=== PATIENT | female | born 1960 | race Caucasian/White ===

== ENCOUNTER 2017-01-04 12:45 | Emergency (ER) | payer OTHER ==
--- NOTE | 2017-01-04 15:01 | DIAGNOSTIC IMAGING REPORT ---
PROCEDURE: CT HEAD WITHOUT CONTRAST INDICATION: TRAUMA/INJURY TECHNIQUE: Axial CT images were acquired through the head. Coronal and sagittal reformations were created. COMPARISON: None. 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 Ventricles are normal in size, shape and position. There is no mass, mass effect or midline shift. The koehler-white matter differentiation is normal. There is no edema. The calvarium is intact. The paranasal sinuses and mastoid air cells are normally aerated. The extracranial soft tissues and orbits are normal. IMPRESSION: 1. No CT evidence of acute intracranial process. 2. Findings discussed with emergency department at 03:[address] scans at this facility use dose modulation, iterative reconstruction, and/or weight-based dosing when appropriate to reduce radiation dose to as low as reasonably achievable.
--- NOTE | 2017-01-04 15:11 | DIAGNOSTIC IMAGING REPORT ---
PROCEDURE: CT SINUS/FACIAL BONES W/O CONT CLINICAL INDICATION: TRAUMA/INJURY TECHNIQUE: Noncontrast axial CT images through the sinuses. Coronal and sagittal reformations were created. COMPARISON: None. FINDINGS: The frontal sinuses are normally aerated. The outflow tracts are patent. Sphenoid sinuses and their outflow tracts are patent. No mucosal thickening throughout the ethmoid air cells. The maxillary sinuses are normally aerated with no mucosal thickening. The outflow tracts are patent. The patient is status post bilateral orbital zygomatic craniotomies. No facial bone fractures. Temporomandibular joints are normally aligned. Bony orbits are intact. Orbital soft tissues appear normal. Facial soft tissues and visible glandular structures are symmetric. IMPRESSION: 1. No fractures. 2. Results were called to Mindy Min at 03:[address] scans at this facility use dose modulation, iterative reconstruction, and/or weight-based dosing when appropriate to reduce radiation dose to as low as reasonably achievable.
--- NOTE | 2017-01-04 15:52 | DIAGNOSTIC IMAGING REPORT ---
PROCEDURE: CT ABD/PELVIS WITH CONTRAST INDICATION: TRAUMA/INJURY TECHNIQUE: 125 ml of Isovue 300 were injected intravenously and axial images were obtained of the entire abdomen and pelvis with sagittal and coronal reformations. COMPARISON: Abdominal CT 08/10/2013 FINDINGS: ABDOMEN: Lung bases are clear. Heart size is normal. Liver, gallbladder, pancreas, spleen, adrenal glands and kidneys are normal. Normal abdominal aorta. PELVIS: No diverticulosis or inflammatory process. The appendix not visualized but no evidence of acute appendicitis. Bilateral parametrial surgical clips suggestive of tubal ligation. Uterus and bladder are normal. No free fluid or free air. L5-S1 disc space narrowing. No suspicious osseous lesion. IMPRESSION: 1. Tubal ligation. 2. Otherwise normal CT abdomen pelvis 3. Results discussed with Mindy Min
--- NOTE | 2017-01-04 16:07 | ED CLINICAL REPORT ---
Clinical Report - Physicians/Mid Levels [facility] [address] [place] [address] 01/04/2017 12:47 [facility]: [id number] Time Seen: 13:48; initial patient contact, initial documentation, patient care assumed. Arrived- By private vehicle. Historian- patient. HISTORY OF PRESENT ILLNESS Chief Complaint: FALL. Location of injuries- head, face, abdomen, back and right forearm. The injury occurred about 3 days ago. Fell while walking and landed on the ground; slipped. Occurred at home. The patient complains of moderate pain. The patient sustained a blow to the head. No neck pain or seizure. Not dazed. REVIEW OF SYSTEMS No numbness, loss of vision, chest pain, difficulty breathing or weakness. No laceration or vomiting. She has had abdominal pain but no pain on weight bearing. All systems otherwise negative, except as recorded above. PAST HISTORY See nurses notes. PROBLEMS: Arthritis. 3 brain aneurysms. --13:07 Tucker Fraga R.N. SOCIAL HISTORY Light tobacco smoker. No alcohol use or drug use. No recent travel. Is a local resident. FAMILY HISTORY No significant family medical history. ADDITIONAL NOTES The nursing notes have been reviewed with agreement regarding the chief complaint, HPI, ROS, PMH and patient medications and allergies. PHYSICAL EXAM Vital Signs: 01/04/2017 13:16 BP: 156/86. HR: 64. RR: 16. O2 saturation: 96%. Temp: 97.7 F. Pain level now: 4/10. Have been reviewed as normal and appear to be correct. Appearance: Alert. Oriented X3. No acute distress. Head: Head tender. Swelling of head present. Eyes: Pupils equal, round and reactive to light. EOM intact. Left periorbital area: moderate tenderness, mild swelling and medium sized ecchymosis of the medial aspect and infraorbital area of the periorbital area. No erythema, puncture wound or foreign body. No laceration or deformity. No entrapment of extraocular muscles or gaze palsy. ENT: No dental injury. Pharynx normal. Neck: Painless ROM. Non-tender. Non-tender. CVS: Heart sounds normal. Pulses normal. Respiratory: Breath sounds normal. Chest nontender. Abdomen: Injury is visible. Soft. Mild tenderness in the right upper quadrant and epigastric area. No guarding, rebound tenderness or Beauchamp's, obturator or psoas sign present. Bowel sounds normal. No organomegaly. No mass. Abdomen: mild tenderness and small ecchymosis located in the mid-upper abdomen. No erythema, puncture wound or foreign body. No swelling. No laceration. No abrasion. No injury to the right flank or left flank. No guarding present. No rebound present. Tenderness present. Back: No tenderness. ROM normal. Skin: Skin intact. Skin warm and dry. Normal skin color. Normal skin turgor. Extremities: Normal inspection. Pelvis stable. Extremities atraumatic. No lower extremity edema. Neuro: Oriented X 3. No motor deficit. No sensory deficit. LABS, X-RAYS, AND EKG CT Head: No acute disease. (IMPRESSION: 1. No CT evidence of acute intracranial process. 2. Findings discussed with emergency department at 03:[address] scans at this facility use dose modulation, iterative reconstruction, and/or weight-based dosing when appropriate to reduce radiation dose to as low as reasonably achievable. Electronically Final signed by:Juancarlos Lowery MD 01/04/2017 3:01:27 PM Technologist: JULIA). The study was interpreted by the radiologist and discussed with the radiologist. Interpretation time: 1505. CT Abdomen: No acute disease. IMPRESSION: 1. Tubal ligation. 2. Otherwise normal CT abdomen pelvis 3. Results discussed with Mindy Min Electronically Final signed by:Juancarlos Lowery MD 01/04/2017 3:52:21 PM. The study was interpreted by the radiologist and discussed with the radiologist. Interpretation time: 1545. Note - Tests: (CT Face IMPRESSION: 1. No fractures. 2. Results were called to Mindy Min at 03:[address] scans at this facility use dose modulation, iterative reconstruction, and/or weight-based dosing when appropriate to reduce radiation dose to as low as reasonably achievable. Electronically Final signed by:Juancarlos Lowery MD 01/04/2017 3:11:24 PM). PROGRESS AND PROCEDURES Course of Care: 01/04/2017 15:52 BP: 135/74. HR: 58. RR: 14. O2 saturation: 98%. Temp: 97.8 F. Pain level now: 01/08. Vital Signs: have been reviewed as normal and appear to be correct. Patient and friend counseled in person regarding the patient's stable condition, test results and diagnosis. 1600. Differential Diagnosis: Other possible considerations: fall, fx, internal injury, contusions,, sprains, lacs, abrasions. Above considerations are based on history, physical exam, laboratory data and other information. Differential diagnosis was discussed with patient. Disposition: Discharged home in good and improved condition (16:07). Condition: good and stable. CLINICAL IMPRESSION Multiple contusions to the left periorbital area and right upper quadrant of the abdomen.No hematoma or skin abrasion. Fall on same level by slipping. INSTRUCTIONS Do not work today, for two days. Warnings: GENERAL WARNINGS: Return or contact your physician immediately if your condition worsens or changes unexpectedly, if not improving as expected, or if other problems arise. SPECIFICALLY, return if you develop incontinence of urine (loss of bladder control). chest pain, trouble breathing, increased abdominal pain. Prescription Medications: Ultram 50 mg tablets: take 1-2 orally every 6 hours as needed for pain. Dispense twenty (20). No refills. Substitution is permissible. Follow-up: Follow up with your doctor in about five days as needed. Call for an appointment. Summary of care provided to patient. Understanding of the discharge instructions verbalized by patient. (Electronically signed by Mindy Min A.R.N.P. 01/04/2017 16:50)
--- NOTE | 2017-01-04 16:07 | ED NURSING NOTES ---
Clinical Report - Nurses [facility] [address] [place] [address] 01/04/2017 12:47 Patient: ANDER JIMENEZ TRIAGE Triage time 13:00 Jan 04 2017. Acuity: LEVEL 3. Chief Complaint: FALL while walking, onto the ground and landed on their back; lost balance. SEPSIS SCREEN: Sepsis Screen. Negative (no infection suspected/documented). --13:08 Tucker Fraga R.N. 13:16 01/04/17. BP: 156/86. HR: 64. RR: 16. O2 saturation: 96% on room air. Temp: 97.7 F. Pain level now: 02/08. --13:16 Tucker Fraga R.N. Weight: 72.5 kg estimated. Height/Length: 64 inches Estimated. BMI: 27.5. --13:03 Tucker Fraga R.N. Medications Naprosyn Oral. --13:06 Tucker Fraga R.N. Tylenol. --13:06 Tucker Fraga R.N. Allergies No Known Drug Allergy. --13:06 Tucker Fraga R.N. History Arrived by private vehicle. Historian: patient. Accompanied by family. Location of injuries: left periorbital area. This occurred (Wednesday). She has had extremity pain. Treatment SITE ACQUISITION MANAGER: Ice. Trauma activation: Pre-hospital notification of patient arrival was received. PAST MEDICAL HX: No history of diabetes mellitus, heart disease, stroke or hypertension. Tetanus status: up-to-date. Immunizations: up-to-date. Denies current . SURGERY HX: ( 3 aneurysms clipped.). SOCIAL HX: Light tobacco smoker (Last cigarette 2 weeks ago). No alcohol use or drug use. No infectious disease exposure. FALL RISK ASSESSMENT: Fall risk assessment completed. No fall risk identified. NUTRITIONAL RISK ASSESSMENT: The nutritional risk assessment revealed no deficiencies. FUNCTIONAL ASSESSMENT: Functional assessment: no impairments noted. LEARNING NEEDS ASSESSMENT: The learning needs assessment revealed no barriers. ABUSE ASSESSMENT: Abuse assessment: The patient was asked "Do you feel safe in your home?". SKIN INTEGRITY ASSESSMENT: Skin integrity risk assessment completed. No skin integrity risk identified. --13:08 Tucker Fraga R.N. PROBLEMS: Arthritis. 3 brain aneurysms. --13:07 Tucker Fraga R.N. Interventions ID band on patient. To treatment room. --13:08 Tucker Fraga R.N. PHYSICAL ASSESSMENT Ambulatory to room. GENERAL / NEURO / PSYCH: Alert. Oriented X 4. Appears in pain. She has had weakness. HEENT: Head: ecchymosis present (L periorbital injury). RESPIRATORY: Respirations not labored. CVS: Capillary refill less than 2 seconds. GI / : Abdomen soft. ( Large spot of ecchymosis noted to mid abdomen). SKIN: Skin is warm and dry. Ecchymosis located on the right arm. --13:09 Tucker Fraga R.N. NURSING PROGRESS NOTES Patient gowned. Reassurance given. Two patient identifiers checked. Call light placed in reach. Side rails up x 2. Bed placed in lowest position. Patient ready for evaluation- chart flagged and MARKETING INFORMATION MANAGER notified. --13:09 Tucker Fraga R.N. 13:56 01/04/17. BP: 115/67. HR: 71. RR: 16. O2 saturation: 97% on room air. Pain level now: 02/08. --13:58 Tucker Farga R.N. ( Pt is reporting that her vision is fuzzy, she feels "all out of sorts" and is concerned because of her HX of aneurysms. MARKETING INFORMATION MANAGER in to see Pt, head CT ordered.). --13:58 Tucker Fraga R.N. 14:11 01/04/2017 Site #1 started via IV in the left wrist with an 20g angiocath, with aseptic technique and good blood return; one attempt. Blood drawn: rainbow set and pediatric tubes. Labeled in the presence of the patient and sent to the lab. Saline lock flushed with 10 mL saline. --14:11 Tucker Fraga R.N. 14:12 01/04/2017 Toradol IVP 30 mg given. via site #1. Allergies verified and confirmed 5 rights. IV patency established. IV site checked: no pain, redness, or swelling. IV flushed thoroughly pre- and post-medication administration. IVP given by RN. --14:12 Tucker Fraga R.N. Patient transported to [place] by wheelchair with tech. --14:24 Tucker Fraga R.N. Patient returned from [place] by wheelchair with tech. (14:41 Jan 04 2017). --14:43 Tucker Fraga R.N. 16:02 01/04/2017 Toradol IVP Response: no adverse reaction pain is improving. Symptoms are the same. --16:02 Tucker Fraga R.N. 16:27 01/04/2017 Site #1 removed upon discharge. Bandage applied. --16:27 Tucker Fraga R.N. DISPOSITION / DISCHARGE 15:52 01/04/17. BP: 135/74. HR: 58. RR: 14. O2 saturation: 98% on room air. Temp: 97.8 F. Pain level now: 01/08. --15:52 Tucker Fraga R.N. ( MARKETING INFORMATION MANAGER in to discuss results of CT/ABD Imaging studies. Pt stable, ready for DC, sister at bedside. Questions were answered, water brought to Pt per request.). --15:55 Tucker Fraga R.N. Condition at departure: improved and stable. The goals identified in the patient's plan of care were met. No learning barriers present. Discharge instructions provided and reviewed with the patient and family. Reviewed medication(s) side effects, precautions, dosing and course information. Prescription(s) given to the patient. Reviewed referral to a primary care physician. Work note given. Family verbalized understanding. Written instructions provided in Martiniquais. The patient was discharged by the nurse practitioner. She was discharged home and accompanied by family. She left the Emergency Department ambulatory and via private vehicle. Family member driving. ( Pt DC'd in stable condition, VSS, afebrile, pain controlled and improving, verbalized understanding of DC instructions, sister at bedside is ride home. DC paperwork in hand when Pt walked out.). --16:27 Tucker Fraga R.N. Departure time: 16:27 Jan 04 2017. --16:27 Tucker Fraga R.N. Locked/Released at 01/04/2017 16:29 by Tucker Fraga R.N.
--- NOTE | 2017-01-04 16:07 | ED ORDER SUMMARY ---
..... Patient: ANDER JIMENEZ OrderSheet [facility] VisitID: [id number] [place] [address] 56y, F Registration Date/Time: 01/04/2017 ORDER SHEET Weight: 72.5 kg (estimated) Allergies: No Known Drug Allergy GENERAL ORDERS: CT Sinus/Facial Bones wo Cont Urgent (13:55 01/04/2017 HBivens A.R.N.P.) (Ack 13:57 KHoerner) (14:21 KHoerner) CT Head wo Cont Urgent (13:55 01/04/2017 HBivens A.R.N.P.) (Ack 13:57 KHoerner) (14:21 KHoerner) CT Abd/Pel w Cont (No) (pending) Urgent (13:55 01/04/2017 HBivens A.R.N.P.) (Ack 13:57 KHoerner) (14:21 KHoerner) CBC w Diff Urgent (13:55 01/04/2017 HBivens A.R.N.P.) (Ack 13:57 KHoerner) (14:17 MCook R.N.) CMP Urgent (13:55 01/04/2017 HBivens A.R.N.P.) (Ack 13:57 KHoerner) (14:17 MCook R.N.) MEDICATION ORDERS: IV FLUIDS: Toradol IV 30 mg (NOW) (13:54 01/04/2017 HBivens A.R.N.P.) (14:12 MCook R.N.) IV Saline Lock (13:55 01/04/2017 HBivens A.R.N.P.) (14:11 MCook R.N.) ORDER SHEET NOTES: [Electronically signed by Tucker Fraga R.N. (16:29 01/04/2017)] [Electronically signed by Mindy MinR.N.P. (16:50 01/04/2017)] [Electronically locked/signed by Tucker Fraga R.N. (16:29 01/04/2017)]
--- NOTE | 2017-01-04 16:07 | ED ORDER SUMMARY ---
..... Patient: ANDER JIMENEZ OrderSheet [facility] VisitID: [id number] [place] [address] 56y, F Registration Date/Time: 01/04/2017 ORDER SHEET Weight: 72.5 kg (estimated) Allergies: No Known Drug Allergy GENERAL ORDERS: CT Sinus/Facial Bones wo Cont Urgent (13:55 01/04/2017 HBivens A.R.N.P.) (Ack 13:57 KHoerner) (14:21 KHoerner) CT Head wo Cont Urgent (13:55 01/04/2017 HBivens A.R.N.P.) (Ack 13:57 KHoerner) (14:21 KHoerner) CT Abd/Pel w Cont (No) (pending) Urgent (13:55 01/04/2017 HBivens A.R.N.P.) (Ack 13:57 KHoerner) (14:21 KHoerner) CBC w Diff Urgent (13:55 01/04/2017 HBivens A.R.N.P.) (Ack 13:57 KHoerner) (14:17 MCook R.N.) CMP Urgent (13:55 01/04/2017 HBivens A.R.N.P.) (Ack 13:57 KHoerner) (14:17 MCook R.N.) MEDICATION ORDERS: IV FLUIDS: Toradol IV 30 mg (NOW) (13:54 01/04/2017 HBivens A.R.N.P.) (14:12 MCook R.N.) IV Saline Lock (13:55 01/04/2017 HBivens A.R.N.P.) (14:11 MCook R.N.) ORDER SHEET NOTES: [Electronically signed by Tucker Fraga R.N. (16:29 01/04/2017)] [Electronically signed by Mindy MinR.N.P. (16:50 01/04/2017)] [Electronically locked/signed by Tucker Fraga R.N. (16:29 01/04/2017)]
--- NOTE | 2017-01-04 16:07 | ED NURSING NOTES ---
Clinical Report - Nurses [facility] [address] [place] [address] 01/04/2017 12:47 Patient: ANDER JIMENEZ TRIAGE Triage time 13:00 Jan 04 2017. Acuity: LEVEL 3. Chief Complaint: FALL while walking, onto the ground and landed on their back; lost balance. SEPSIS SCREEN: Sepsis Screen. Negative (no infection suspected/documented). --13:08 Tucker Fraga R.N. 13:16 01/04/17. BP: 156/86. HR: 64. RR: 16. O2 saturation: 96% on room air. Temp: 97.7 F. Pain level now: 02/08. --13:16 Tucker Fraga R.N. Weight: 72.5 kg estimated. Height/Length: 64 inches Estimated. BMI: 27.5. --13:03 Tucker Fraga R.N. Medications Naprosyn Oral. --13:06 Tucker Fraga R.N. Tylenol. --13:06 Tucker Fraga R.N. Allergies No Known Drug Allergy. --13:06 Tucker Fraga R.N. History Arrived by private vehicle. Historian: patient. Accompanied by family. Location of injuries: left periorbital area. This occurred (Wednesday). She has had extremity pain. Treatment DIRECTOR FUNERAL: Ice. Trauma activation: Pre-hospital notification of patient arrival was received. PAST MEDICAL HX: No history of diabetes mellitus, heart disease, stroke or hypertension. Tetanus status: up-to-date. Immunizations: up-to-date. Denies current . SURGERY HX: ( 3 aneurysms clipped.). SOCIAL HX: Light tobacco smoker (Last cigarette 2 weeks ago). No alcohol use or drug use. No infectious disease exposure. FALL RISK ASSESSMENT: Fall risk assessment completed. No fall risk identified. NUTRITIONAL RISK ASSESSMENT: The nutritional risk assessment revealed no deficiencies. FUNCTIONAL ASSESSMENT: Functional assessment: no impairments noted. LEARNING NEEDS ASSESSMENT: The learning needs assessment revealed no barriers. ABUSE ASSESSMENT: Abuse assessment: The patient was asked "Do you feel safe in your home?". SKIN INTEGRITY ASSESSMENT: Skin integrity risk assessment completed. No skin integrity risk identified. --13:08 Tucker Fraga R.N. PROBLEMS: Arthritis. 3 brain aneurysms. --13:07 Tucker Fraga R.N. Interventions ID band on patient. To treatment room. --13:08 Tucker Fraga R.N. PHYSICAL ASSESSMENT Ambulatory to room. GENERAL / NEURO / PSYCH: Alert. Oriented X 4. Appears in pain. She has had weakness. HEENT: Head: ecchymosis present (L periorbital injury). RESPIRATORY: Respirations not labored. CVS: Capillary refill less than 2 seconds. GI / : Abdomen soft. ( Large spot of ecchymosis noted to mid abdomen). SKIN: Skin is warm and dry. Ecchymosis located on the right arm. --13:09 Tucker Fraga R.N. NURSING PROGRESS NOTES Patient gowned. Reassurance given. Two patient identifiers checked. Call light placed in reach. Side rails up x 2. Bed placed in lowest position. Patient ready for evaluation- chart flagged and AIR TURNING MACHINE FEEDER notified. --13:09 Tucker Fraga R.N. 13:56 01/04/17. BP: 115/67. HR: 71. RR: 16. O2 saturation: 97% on room air. Pain level now: 02/08. --13:58 Tucker Fraga R.N. ( Pt is reporting that her vision is fuzzy, she feels "all out of sorts" and is concerned because of her HX of aneurysms. AIR TURNING MACHINE FEEDER in to see Pt, head CT ordered.). --13:58 Tucker Fraga R.N. 14:11 01/04/2017 Site #1 started via IV in the left wrist with an 20g angiocath, with aseptic technique and good blood return; one attempt. Blood drawn: rainbow set and pediatric tubes. Labeled in the presence of the patient and sent to the lab. Saline lock flushed with 10 mL saline. --14:11 Tucker Fraga R.N. 14:12 01/04/2017 Toradol IVP 30 mg given. via site #1. Allergies verified and confirmed 5 rights. IV patency established. IV site checked: no pain, redness, or swelling. IV flushed thoroughly pre- and post-medication administration. IVP given by RN. --14:12 Tucker Fraga R.N. Patient transported to [place] by wheelchair with tech. --14:24 Tucker Fraga R.N. Patient returned from [place] by wheelchair with tech. (14:41 Jan 04 2017). --14:43 Tucker Fraga R.N. 16:02 01/04/2017 Toradol IVP Response: no adverse reaction pain is improving. Symptoms are the same. --16:02 Tucker Fraga R.N. 16:27 01/04/2017 Site #1 removed upon discharge. Bandage applied. --16:27 Tucker Fraga R.N. DISPOSITION / DISCHARGE 15:52 01/04/17. BP: 135/74. HR: 58. RR: 14. O2 saturation: 98% on room air. Temp: 97.8 F. Pain level now: 01/08. --15:52 Tucker Fraga R.N. ( AIR TURNING MACHINE FEEDER in to discuss results of CT/ABD Imaging studies. Pt stable, ready for DC, sister at bedside. Questions were answered, water brought to Pt per request.). --15:55 Tucker Fraga R.N. Condition at departure: improved and stable. The goals identified in the patient's plan of care were met. No learning barriers present. Discharge instructions provided and reviewed with the patient and family. Reviewed medication(s) side effects, precautions, dosing and course information. Prescription(s) given to the patient. Reviewed referral to a primary care physician. Work note given. Family verbalized understanding. Written instructions provided in Vietnamese. The patient was discharged by the nurse practitioner. She was discharged home and accompanied by family. She left the Emergency Department ambulatory and via private vehicle. Family member driving. ( Pt DC'd in stable condition, VSS, afebrile, pain controlled and improving, verbalized understanding of DC instructions, sister at bedside is ride home. DC paperwork in hand when Pt walked out.). --16:27 Tucker Fraga R.N. Departure time: 16:27 Jan 04 2017. --16:27 Tucker Fraga R.N. Locked/Released at 01/04/2017 16:29 by Tucker Fraga R.N.
--- NOTE | 2017-01-04 16:50 | ED MAR SUMMARY ---
..... Medication Administration Record [facility] [address] [address] Patient: ANDER JIMENEZ Visit ID: [id number] 56y, F Weight: 72.5 kg Height/Length: 64 in BMI: 27.5 ALLERGIES: No Known Drug Allergy Given 14:12 01/04/2017 Tucker Fraga R.N. Medication Administered: TORADOL [IVP], Dose: 30 mg IVP, Site: #1 left wrist. Medication Ordered: Toradol IV 30 mg (NOW).
--- NOTE | 2017-01-04 16:50 | ED DISCHARGE INSTRUCTIONS ---
Patient: ANDER JIMENEZ General Instructions [facility] VisitID: [id number] [place] [address] 56y, F Registration Date/Time: 01/04/2017 Multiple contusions to the left periorbital area and right upper quadrant of the abdomen.No hematoma or skin abrasion. Fall on same level by slipping. INSTRUCTIONS Do not work today, for two days. Warnings: GENERAL WARNINGS: Return or contact your physician immediately if your condition worsens or changes unexpectedly, if not improving as expected, or if other problems arise. SPECIFICALLY, return if you develop incontinence of urine (loss of bladder control). chest pain, trouble breathing, increased abdominal pain. Prescription Medications: Ultram 50 mg tablets: take 1-2 orally every 6 hours as needed for pain. Dispense twenty (20). No refills. Substitution is permissible. Follow-up: Follow up with your doctor in about five days as needed. Call for an appointment. Summary of care provided to patient. Understanding of the discharge instructions verbalized by patient. ADDITIONAL INFORMATION Mechanical Fall You have had a fall today. It appears that the cause is mechanical. That means that you slipped, tripped or lost your balance. If your fall had been due to fainting or a seizure, further tests would be required. Home Care: Rest today and resume your normal activities when you are feeling back to normal. If you were injured during the fall, follow the advice from your doctor regarding care of your injury. You may use acetaminophen (Tylenol) or ibuprofen (Motrin, Advil) to control pain, unless another pain medicine was prescribed. [NOTE: If you have chronic liver or kidney disease or ever had a stomach ulcer or GI bleeding, talk with your doctor before using these medicines.] Fall Prevention: Was there anything that caused your fall that can be fixed, removed, or replaced? Make your home safe by keeping walkways clear of objects you may trip over. Use non-slip pads under rugs. Do not walk in poorly lit areas. Do not stand on chairs or wobbly ladders. Use caution when reaching overhead or looking upward. This position can cause a loss of balance. Be sure your shoes fit properly, have non-slip bottoms and are in good condition. Be cautious when going up and down curbs, and walking on uneven sidewalks. If your balance is poor, consider using a cane or walker. Stay as active as you can. Balance, flexibility, strength, and endurance all come from exercise. They all play a role in preventing falls. Follow Up with your doctor or as advised by our staff. Get Prompt Medical Attention if any of the following occur: Repeated mechanical falls, or unexplained falls Dizziness, fainting or seizure Severe headache Chest pain or shortness of breath Palpitations (very rapid or very slow or irregular heartbeat) Blood in vomit, stools (black or red color) Weakness of an arm or leg or one side of the face Difficulty with speech or vision Contusion,Soft Tissue You have a CONTUSION, which is a bruise with swelling and some bleeding under the skin. There are no broken bones. This injury takes a few days to a few weeks to heal. Home Care: 1) Keep the injured part elevated to reduce pain and swelling. This is especially important during the first 48 hours. 2) Make an ice pack (ice cubes in a plastic bag, wrapped in a towel) and apply for 20 minutes every 1-2 hours the first day. Continue this 3-4 times a day until the pain and swelling goes away. 3) You may use acetaminophen (Tylenol) or ibuprofen (Motrin, Advil) to control pain, unless another pain medicine was prescribed. [ NOTE : If you have chronic liver or kidney disease or ever had a stomach ulcer or GI bleeding, talk with your doctor before using these medicines.] Follow Up with your doctor or this facility if you are not improving within the next THREE days. [NOTE: If X-rays were taken, they will be reviewed by a radiologist. You will be notified of any new findings that may affect your care.] Get Prompt Medical Attention if any of the following occur: -- Pain or swelling increases -- Injured arm or leg becomes cold, blue, numb or tingly -- Redness, warmth or drainage from the skin Facial Contusion (No Wake-Up) A facial contusion is a bruise with swelling and sometimes bleeding under the skin. The swelling should start to go down within two days. Although there may be no signs of a serious injury at this time, symptoms may appear later which could be a sign of a more serious problem. Therefore, watch for the warning signs below. Home care The following guidelines will help you care for your injury at home: If you have swelling of the face, apply an ice pack (ice cubes in a plastic bag, wrapped in a towel) for 20 minutes every 12 hours until the swelling starts to go down. If you have scrapes or cuts on your face, clean them daily with soap and water. Apply an antibiotic ointment or cream for the first few days to prevent infection. You may use acetaminophen or ibuprofen to control pain, unless another pain medicine was prescribed.If you have chronic liver or kidney disease or ever had a stomach ulcer or GI bleeding, talk with your doctor before using these medicines. Do not use ibuprofen in children under six months of age. For the next 24 hours: Do not take alcohol, sedatives or medicines that make you sleepy. Do not drive or operate machinery. Avoid strenuous activities. No lifting or straining. If you have had any symptoms of aconcussiontoday (nausea, vomiting, dizziness, confusion, headache, memory loss or if you were knocked out), do not return to sports or any activity that could result in another head injury until all symptoms are gone and you have been cleared by your doctor. A second head injury before fully recovering from the first one can lead to serious brain injury. Follow-up care Follow up with your doctor in one week or as directed. Note: Any X-rays or CT scans taken will be reviewed by a radiologist. You will be notified of any new findings that may affect your care. When to seek medical care Get prompt medical attention if any of the following occur: Repeated vomiting Severe or worsening headache or dizziness Unusual drowsiness, or unable to awaken as usual Confusion or change in behavior or speech, memory loss, blurred vision Convulsion (seizure) Increasing scalp or face swelling Redness, warmth or pus from the swollen area Fluid drainage or bleeding from the nose or ears Fever of 100.4F (38C) or higher, or as directed by your health care provider Increasing jaw pain with chewing or increasing pain in the sinuses Nose looks crooked or cannot breathe through your nose after swelling goes down Tramadol Hydrochloride Oral tablet What is this medicine? TRAMADOL (TRA ma dole) is a pain reliever. It is used to treat moderate to severe pain in adults. How should I use this medicine? Take this medicine by mouth with a full glass of water. Follow the directions on the prescription label. If the medicine upsets your stomach, take it with food or milk. Do not take more medicine than you are told to take. Talk to your checking department supervisor regarding the use of this medicine in children. Special care may be needed. What side effects may I notice from receiving this medicine? Side effects that you should report to your doctor or health reservoir caretaker as soon as possible: allergic reactions like skin rash, itching or hives, swelling of the face, lips, or tongue breathing difficulties, wheezing confusion itching light headedness or fainting spells redness, blistering, peeling or loosening of the skin, including inside the mouth seizures Side effects that usually do not require medical attention (report to your doctor or health reservoir caretaker if they continue or are bothersome): constipation dizziness drowsiness headache nausea, vomiting What may interact with this medicine? Do not take this medicine with any of the following medications: MAOIs like Carbex, Eldepryl, Marplan, Nardil, and Parnate This medicine may also interact with the following medications: alcohol or medicines that contain alcohol antihistamines benzodiazepines bupropion carbamazepine or oxcarbazepine clozapine cyclobenzaprine digoxin furazolidone linezolid medicines for depression, anxiety, or psychotic disturbances medicines for migraine headache like almotriptan, eletriptan, frovatriptan, naratriptan, rizatriptan, sumatriptan, zolmitriptan medicines for pain like pentazocine, buprenorphine, butorphanol, meperidine, nalbuphine, and propoxyphene medicines for sleep muscle relaxants naltrexone phenobarbital phenothiazines like perphenazine, thioridazine, chlorpromazine, mesoridazine, fluphenazine, prochlorperazine, promazine, and trifluoperazine procarbazine warfarin What if I miss a dose? If you miss a dose, take it as soon as you can. If it is almost time for your next dose, take only that dose. Do not take double or extra doses. Where should I keep my medicine? Keep out of the reach of children. Store at room temperature between 15 and 30 degrees C (59 and 86 degrees F). Keep container tightly closed. Throw away any unused medicine after the expiration date. What should I tell my health care provider before I take this medicine? They need to know if you have any of these conditions: brain tumor depression drug abuse or addiction head injury if you frequently drink alcohol containing drinks kidney disease or trouble passing urine liver disease lung disease, asthma, or breathing problems seizures or epilepsy suicidal thoughts, plans, or attempt; a previous suicide attempt by you or a family member an unusual or allergic reaction to tramadol, codeine, other medicines, foods, dyes, or preservatives or trying to get breast-feeding What should I watch for while using this medicine? Tell your doctor or health reservoir caretaker if your pain does not go away, if it gets worse, or if you have new or a different type of pain. You may develop tolerance to the medicine. Tolerance means that you will need a higher dose of the medicine for pain relief. Tolerance is normal and is expected if you take this medicine for a long time. Do not suddenly stop taking your medicine because you may develop a severe reaction. Your body becomes used to the medicine. This does NOT mean you are addicted. Addiction is a behavior related to getting and using a drug for a non-medical reason. If you have pain, you have a medical reason to take pain medicine. Your doctor will tell you how much medicine to take. If your doctor wants you to stop the medicine, the dose will be slowly lowered over time to avoid any side effects. You may get drowsy or dizzy. Do not drive, use machinery, or do anything that needs mental alertness until you know how this medicine affects you. Do not stand or sit up quickly, especially if you are an older patient. This reduces the risk of dizzy or fainting spells. Alcohol can increase or decrease the effects of this medicine. Avoid alcoholic drinks. You may have constipation. Try to have a bowel movement at least every 2 to 3 days. If you do not have a bowel movement for 3 days, call your doctor or health reservoir caretaker. Your mouth may get dry. Chewing sugarless gum or sucking hard candy, and drinking plenty of water may help. Contact your doctor if the problem does not go away or is severe. You have been given the following additional information: Fall, Mechanical Contusion, Soft Tissue Facial Contusion, No Wakeup Tramadol Hydrochloride Oral tablet Do not work today, for two days. (Electronically signed by Mindy Min A.R.N.P. 01/04/2017 16:50)
--- NOTE | 2017-01-04 16:50 | ED MED RECONCILIATION SUMMARY ---
Patient: ANDER JIMENEZ Medication Reconciliation Report [facility] VisitID: [id number] [address] [place] [address] 56y, F Registration Date/Time: 01/04/2017 Weight: 72.5 kg Height/Length: 64 in. BMI: 27.5 ALLERGIES: No Known Drug Allergy The patient's Home Medications are listed below: THE FOLLOWING MEDICATIONS NEED TO BE RECONCILED: Naprosyn Oral Tylenol The source(s) of the original Home Medication information: Not obtained. The following Medications were given to the patient in the Emergency Department: Toradol [IVP] IVP 30 mg, administered: 01/04/2017 2:12:00 PM The following Medications were prescribed to the patient: Ultram 50 mg tablets: take 1-2 orally every 6 hours as needed for pain. Dispense twenty (20). No refills. Substitution is permissible. -- Mindy Min A.R.N.P.
--- NOTE | 2017-01-04 16:50 | ED MAR SUMMARY ---
..... Medication Administration Record [facility] [address] [place] [address] Patient: ANDER JIMENEZ Visit ID: [id number] 56y, F Weight: 72.5 kg Height/Length: 64 in BMI: 27.5 ALLERGIES: No Known Drug Allergy Given 14:12 01/04/2017 Tucker Fraga R.N. Medication Administered: TORADOL [IVP], Dose: 30 mg IVP, Site: #1 left wrist. Medication Ordered: Toradol IV 30 mg (NOW).
--- NOTE | 2017-01-04 16:50 | ED MED RECONCILIATION SUMMARY ---
Patient: ANDER JIMENEZ Medication Reconciliation Report [facility] VisitID: [id number] [address] [place] [address] 56y, F Registration Date/Time: 01/04/2017 Weight: 72.5 kg Height/Length: 64 in. BMI: 27.5 ALLERGIES: No Known Drug Allergy The patient's Home Medications are listed below: THE FOLLOWING MEDICATIONS NEED TO BE RECONCILED: Naprosyn Oral Tylenol The source(s) of the original Home Medication information: Not obtained. The following Medications were given to the patient in the Emergency Department: Toradol [IVP] IVP 30 mg, administered: 01/04/2017 2:12:00 PM The following Medications were prescribed to the patient: Ultram 50 mg tablets: take 1-2 orally every 6 hours as needed for pain. Dispense twenty (20). No refills. Substitution is permissible. -- Mindy Min A.R.N.P.
== END 2017-01-04 14:27 | disposition home or self-care (01) ==
LOC: ED SRH 12:45
DX: S00.12XA Contusion of left eyelid and periocular area, initial encounter (principal); S30.1XXA Contusion of abdominal wall, initial encounter; W01.0XXA Fall on same level from slipping, tripping and stumbling without subsequent striking against object, initial encounter; Y93.01 Activity, walking, marching and hiking; Y99.8 Other external cause status; Y92.009 Unspecified place in unspecified non-institutional (private) residence as the place of occurrence of the external cause; F17.200 Nicotine dependence, unspecified, uncomplicated
CPT/HCPCS: 90100; 95059